=== PATIENT | female | born 1950 | race Caucasian/White ===

== ENCOUNTER → 2024-04-30 12:59 | Outpatient (REF) | payer MEDICARE, SELFPAY | LOC: HWRAD 12:59 | PROVIDERS: ATTENDING PHYSICIAN Obstetrics & Gynecology Gynecology; FAMILY PHYSICIAN Family Medicine | DX: Z78.0 Asymptomatic menopausal state (principal); Z12.31 Encounter for screening mammogram for malignant neoplasm of breast | CPT/HCPCS: 77063; 77067; 77080 ==

== ENCOUNTER → 2024-06-26 12:48 | Outpatient (REF) | payer MEDICARE, SELFPAY | LOC: MRI 3T 12:48 | PROVIDERS: ATTENDING PHYSICIAN Psychiatry & Neurology Neurology; FAMILY PHYSICIAN Family Medicine | DX: R41.3 Other amnesia (principal) | CPT/HCPCS: 70551 ==

== ENCOUNTER 2024-08-16 13:06 | Emergency (ER) | payer MEDICARE, SELFPAY ==
[2024-08-16 13:19] VITALS: BP 137/79
[2024-08-16 13:51] LABS: % Basophils 0.8 % (0-2); % Eosinophils 2.1 % (0-6); % Immature Granulocytes 0.2 % (0-0.5); % Lymphocytes 18.9 % (20.5-51.1); % Monocytes 10.7 % (1.7-9.3); % Neutrophils 67.3 % (42.2-75.2); Absolute Eosinophils 0.1 10^3/uL (0-0.7); Absolute Monocytes 0.6 10^3/uL (0.1-0.6); Absolute Neutrophils 3.6 10^3/uL (1.4-6.5); Hematocrit 35.4 % (37.0-47.0); Hemoglobin 12.4 g/dL (12.0-16.0); Mean Corpuscular Hgb 30.7 pg (27.0-31.0); Mean Corpuscular Volume 87.6 fL (81.0-99.0); Mean Platelet Volume 9.5 fL (7.4-10.4); Nucleated Red Blood Cells % 0 %; Platelet Count 231 10^3/uL (130-400); Red Blood Cell Count 4.04 10^6/uL (4.20-5.40); Red Cell Dist. Width 13.7 % (11.5-14.5); White Blood Cell Count 5.3 10^3/uL (4.8-10.8)
[2024-08-16 14:04] LABS: Troponin I < 0.012 ng/ml
[2024-08-16 14:06] LABS: ALT (SGPT) 16 U/L (0-35); AST (SGOT) 22 U/L (14-36); Albumin 4.5 g/dl (3.5-5.0); Alkaline Phosphatase 50 U/L (38-126); Blood Urea Nitrogen 19 mg/dl (7-17); Calcium 10.2 mg/dl (8.4-10.2); Carbon Dioxide 33 mmol/L (22-30); Chloride 100 mmol/L (98-107); Glucose 80 mg/dl (70-99); Potassium 3.8 mmol/L (3.5-5.1); Sodium 142 mmol/L (135-145); Total Bilirubin 0.4 mg/dl (0.2-1.3); Total Protein 7.4 g/dl (6.3-8.2); eGFR > 60.00
[2024-08-16 15:08] VITALS: BP 133/74
--- NOTE | 2024-08-16 15:13 | ED.GENMED ---
History of Present Illness
General
Chief Complaint: Chest Pain
Time Seen by Provider: 08/16/24 15:00
History of Present Illness
History of Present Illness:
74-year-old female presents to the emergency department for evaluation of 2 episodes of brief left-sided chest discomfort occurring yesterday. Describes a sharp pain to the left chest wall that occurred yesterday afternoon and last night, lasting 1
second with each episode. Primary care physician recommended follow-up with emergency department due to concern for acute coronary syndrome. The patient has no symptoms currently. No prior history of coronary disease, no history of hypertension
or hyperlipidemia. Denies pleuritic pain or leg swelling
Past History
Past History
ED Past Medical History: GERD (barrettts), Hypercholesterolemia, Hypothyroidism, Psychiatric (Anxiety, depression) and Other (lumbar stenosis w/ neuropathy left leg, IBS, Diverticulitis, Barrets Esophagus); Negative CAD or TN
ED Past Surgical History: Gynecological
Social History
Tobacco: Non-smoker
Alcohol: Occasional
Drug: Other
Personal:
Living: with family
Employment: Other
Family History
Family History: Other
Review of Systems
Review of Systems
Allergies reviewed?: Yes
All Other Systems: ROS reviewed and negative except as documented in HPI and ROS
Phy Exam
Physical Exam
Physical Exam:
GEN: Well appearing, NAD, WDWN
HEENT: Oral mucosa moist, no scleral icterus
Cardiac: Regular rate and rhythm, no murmurs
Chest: Pinpoint tenderness to left lateral chest wall just inferior to the breast in the anterior axillary line, no palpable deformities, slight skin erythema noted
Lung: No respiratory distress, no tachypnea, lungs clear to auscultation bilaterally
MSK: No gross deformity or injuries
Skin: Good color, no pallor or jaundice, no rashes
Neuro: AO x3, moves all extremities freely
Psych: Calm, cooperative
Scores
Heart Score for Chest Pain Patients
STEMI patient?: No
History: Slightly or Non-Suspicious
ECG: Normal
Age: >/= 65 years
Risk Factors: 1 or 2 Risk Factors
Troponin: </= Normal Limit
Heart Score for Chest Pain Patients: 3
Heart Score Risk: 2.5% MACE over next 6 weeks
Course
Orders/Labs/Results
Orders:
Orders
08/16/24 13:07
Electrocardiogram (*1) Urgent
Reason for Study: Chest Pain
EKG- Treatment ONCE
08/16/24 13:28
Complete Blood Count/With Diff Urgent
Comprehensive Metabolic Panel Urgent
Troponin I Urgent
Abnormal Lab Results
08/16/24
13:28
RBC 4.04 L 10^6/uL
(4.20-5.40)
Hct 35.4 L %
(37.0-47.0)
Absolute Lymphs (auto) 1.0 L 10^3/uL
(1.2-3.4)
Lymphocytes % 18.9 L %
(20.5-51.1)
Monocytes % 10.7 H %
(1.7-9.3)
Carbon Dioxide 33 H mmol/L
(22-30)
BUN 19 H mg/dl
(7-17)
08/16/24 13:28
08/16/24 13:28
Vital Signs
Initial and Last Documented VS:
Initial Vital Signs
Temp Pulse Resp BP Pulse Ox
98.2 F 84 18 137/79 100
08/16/24 13:19 08/16/24 13:19 08/16/24 13:19 08/16/24 13:19 08/16/24 13:19
Last Documented Vital Signs
Temp Pulse Resp BP Pulse Ox
98.2 F 73 19 133/74 98
08/16/24 13:19 08/16/24 15:09 08/16/24 15:09 08/16/24 15:08 08/16/24 15:09
MDM/Problems Addressed
MDM/Problems Addressed:
Clinical presentation is not consistent with acute coronary syndrome or pulmonary embolism, she had 2 brief episodes of pain that is clearly reproducible on exam suggesting a chest wall etiology. Discussed supportive care and return parameters
Comment
Comment:
EKG independently interpreted by me shows normal sinus rhythm at a rate of [address] changes concerning for ischemia
*Critical Care Note
Total Time (30-74mins, 75-104mins- exclusive of procedures): Not Applicable
ED Attending Note
-
Portions of this chart may have been created with voice recognition software.� Occasional wrong word or��sound alike� substitutions may have occurred due to the inherent limitations of voice recognition software.
Discharge Plan
Departure
Patient Disposition: Home (Routine Discharge)
Date of Disposition: 08/16/24
Time of Disposition: 15:16
Patient with high blood pressure during this ER visit?: No
Discharge Problem:
Atypical chest pain
Instructions: Chest Pain That Is Not Caused by the Heart (DC)
Prescriptions:
No Action
levothyroxine [Synthroid] 137 mcg Tablet
137 mcg PO DAILY
polyethylene glycol 3350 [Miralax] 17 gram Powder In Packet
17 g PO DAILY
melatonin 3 mg Tablet
3 mg PO HS PRN (Reason: Insomnia)
gabapentin 300 mg Capsule
300 mg PO BID
Interventions
Interventions:
*Risk Screen - Suicide Last Done: 08/16/24 13:23
*General Assessment Last Done: 08/16/24 13:23
*Neglect/Abuse Screening Last Done: 08/16/24 13:23
ED- Fall Risk Assessment Last Done: 08/16/24 15:10
*ED COVID-19 Vaccine History Last Done: 08/16/24 13:23
*Nursing Disposition Last Done: 08/16/24 15:25
ED- Cardiac Assessment Last Done: 08/16/24 15:10
Discharge Date and Time
Discharge Date/Time: 08/16/24 15:25
Print Language: ANGOLAN
== END 2024-08-16 15:25 | disposition home or self-care (01) ==
LOC: EMR 13:06
PROVIDERS: Emergency Medicine; EMERGENCY PHYSICIAN Emergency Medicine; FAMILY PHYSICIAN Family Medicine
DX: R07.89 Other chest pain (principal)
CPT/HCPCS: 99284; 80053; 84484; 85025; 93005